=== PATIENT | male | born 1970 | race Caucasian/White ===

== ENCOUNTER 2017-03-06 07:51 | Emergency (ER) | payer OTHER, MEDICAID ==
[2017-03-06] MEDS ORDERED: HYDROmorphONE/DILAUDID 1 MG/ML SYR IVP ONE (08:23)
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
[2017-03-06 10:14] VITALS: BP 131/80; PULSE 66; RESP 14; TEMP 98.1; O2SAT 98
== END 2017-03-06 10:14 | disposition home or self-care (01) ==
LOC: EDUNIT#
DX: S79.912A Unspecified injury of left hip, initial encounter (principal); E11.9 Type 2 diabetes mellitus without complications; F17.200 Nicotine dependence, unspecified, uncomplicated; Z79.4 Long term (current) use of insulin; W10.8XXA Fall (on) (from) other stairs and steps, initial encounter; Y93.89 Activity, other specified
CPT/HCPCS: 72170; 73551; 96374; 99284; J1170

== ENCOUNTER 2017-07-19 12:49 | Emergency (ER) | payer OTHER, MEDICAID ==
[2017-07-19 13:18] VITALS: BP 129/75; PULSE 74; RESP 16; TEMP 97.3; O2SAT 98
--- NOTE | 2017-07-19 15:00 | EDPHY ---
General Narrative: CHIEF COMPLAINT: Right ankle pain, injury HISTORY OF PRESENT ILLNESS: Patient complains of right ankle pain after falling. This was several days ago. He said that he has difficulty ambulating due to footdrop from extensive diabetic neuropathy and previous injuries stemming from a coma in 2001. He says that he was in his home ambulating when his right foot "gave out" on him, moving an eversion injury. He has had moderate to severe pain in the right ankle since then. No change in his baseline range of motion as he has very little to start with. It is very painful to walk on. Too severe to do so. No change in his neuropathy. No injury to the ipsilateral foot, calcaneus, knee or hip. No position of comfort. No other associated complaints or modifying factors. ESTABLISHED ORTHOPEDIST: None currently. Extensive previous orthopedic surgeries REVIEW OF SYSTEMS: Ten systems reviewed and are negative unless otherwise noted in the HPI PAST MEDICAL HISTORY: Extensive. Reviewed with patient. Significant for bilateral foot drop, diabetic neuropathy and orthopedic injuries PAST SURGICAL HISTORY: Extensive orthopedic surgeries. SOCIAL HISTORY: Smoker. Occasional alcohol. Lives at home with 2 days a week of home health FAMILY HISTORY: Noncontributory EXAMINATION General Appearance: Alert, no distress HEENT: Normocephalic atraumatic Cardiovascular: Pulses normal throughout. Symmetric DP pulses 2+. Symmetric PT pulses 2+. Brisk cap refill Neurological: A&O, poor sensory of the lower extremities which is symmetric and reportedly baseline per patient. Foot drop bilaterally, reportedly baseline. For strength symmetrically, reportedly baseline Skin: Warm and dry, no rash. There is moderate ecchymosis to the right foot medially and right ankle medially. No laceration. No puncture wound. No cellulitis or breakdown. Extremities: Significant tenderness of the right ankle, medial greater than lateral. There is no calcaneal tenderness of the right foot. There is mild midfoot tenderness of the right foot. There is no tenderness of the right proximal fibula. Range of motion of the lower extremities is minimal and baseline per patient. Range of motion of the knees and hips symmetric. Psychiatric: Mood and affect normal DIFFERENTIAL DIAGNOSES: Including but not limited to fracture, sprain, strain, hematoma, fracture dislocation, dislocation MDM: Significant right ankle sprain without obvious fracture on x-ray as read by me and radiologist. There is degenerative change with bone demineralization per radiologist. I sat down at great length with this patient regarding his scenario. I 1st asked him about his pain medication prescriptions and he informed me that he has not had any medications prescribed to him there are narcotics since December of this year. After reviewing his prescription drug monitoring program, I confronted him about these 3 narcotic prescription medications he had in the interim. 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 I informed him that I would like to be able to help him with his pain and I recognize that he has pain, but is difficult to provided for somewhat would not be forthcoming about these. I then asked caseworker intake to visit with him to make sure that the patient may be discharged home safely. The patient became upset about this and was frustrated. I informed him that we would provide pain med resources and ensure that he could follow up with his established primary care physician Dr. Clarke. Aggie GALEANO met with the patient. She informed me that he became belligerent about this. Please see her note for more details, but she informs me that he left before she could finish her conversation with him. I attempted to go discussed this with the patient but he had left prior to me being able to do so. ED Precautions: Worsening pain. Erythema, edema, cyanosis, pallor, paresthesia or anesthesia. - History Smoking Status: Heavy smoker - Objective Vital Signs: Initial Vital Signs Temperature (C) 97.3 F 07/19/17 13:15 Heart Rate 74 07/19/17 13:15 Respiratory Rate 16 07/19/17 13:15 Blood Pressure 129/75 H 07/19/17 13:15 O2 Sat (%) 98 07/19/17 13:15 O2 Delivery Mode Room Air Allergies/Adverse Reactions: No Known Allergies Allergy (Verified 11/26/15 11:41) Home Medications: Medication Instructions Recorded Insulin Pump Cartridge [OMNIPOD] 1 each SQ CONT 12/06/15 Herbals/Supplements -Info Only 1 ea PO DAILY 12/10/15 Lipase 6,000/Amylase/Protease 1 - 4 cap PO QID PRN 12/10/15 [Creon 6 (*)] Medications Given: Discontinued Medications Oxycodone/Acetaminophen (Percocet 5/325) 1 tab PO EDNOW ONE Stop: 07/19/17 15:02 Last Admin: 07/19/17 15:03 Dose: 1 tab Departure - Departure Disposition: Home, Routine, Self-Care Condition: Good Instructions: Ankle Sprain (ED) Additional Instructions: 1. ibuprofen 600mg every 8 hours as needed 2. Follow up with PCP 3. Follow up with certified health education specialist 4. ED precautions as discussed Referrals: NONE *PRIMARY CARE P,. [Primary Care Provider] - As per Instructions Estephania Clarke MD [Doctor of Osteopathy] - As per Instructions [facility],. [Clinic] - As per Instructions
[2017-07-19] MEDS ORDERED: OXYCODONE/APAP 5/325 TAB PO ONE (15:01)
== END 2017-07-19 16:14 | disposition home or self-care (01) ==
DX: S93.401A Sprain of unspecified ligament of right ankle, initial encounter (principal); W18.39XA Other fall on same level, initial encounter; F17.200 Nicotine dependence, unspecified, uncomplicated
CPT/HCPCS: 73610; 99283; L4386

== ENCOUNTER 2017-09-17 09:53 | Day surgery (SDC) | payer OTHER, MEDICAID ==
--- NOTE | 2017-09-16 17:50 | PDHPUP ---
History & Physical Update H&P update statement: This history and physical update is based on an assessment of the patient which was completed after admission or registration (within 24 hours), but prior to the surgery/procedure. updated/reviewed
[2017-09-17] MEDS ORDERED: ceFAZolin 2 GM/SWFI 2 GM/20 ML SYR IVP ONE (10:36)
[2017-09-17] MEDS ORDERED: LIDOCAINE 1% 2 ML INJ ID PRN (10:37)
[2017-09-17] MEDS ORDERED: LR 1,000 ML IV ONE (10:37)
[2017-09-17 10:55] VITALS: PULSE 54; TEMP 97.9
[2017-09-17] MEDS ORDERED: BUPIVACAINE 0.5% 30 ML SDV ONE (11:20)
[2017-09-17] MEDS ORDERED: MIDAZOLAM 2 MG/2 ML VIAL IVP ONE (12:14)
--- NOTE | 2017-09-17 12:16 | PDANEPAE ---
ANE History of Present Illness bilateral inguinal hernias ANE Past Medical History - Cardiovascular History Hx Hypertension: No Hx Arrhythmias: No Hx Chest Pain: No Hx Coronary Artery / Peripheral Vascular Disease: No Hx CHF / Valvular Disease: No Hx Palpitations: No Cardiovascular History Comment: rare palpitations - Pulmonary History Hx COPD: No Hx Asthma/Reactive Airway Disease: No Hx Recent Upper Respiratory Infection: Yes Hx Oxygen in Use at Home: No Hx Sleep Apnea: No Sleep Apnea Screening Result - Last Documented: Negative Pulmonary History Comment: CHILDHOOD ASTHMA - Neurologic History Hx Cerebrovascular Accident: No Hx Seizures: No Hx Dementia: No Neurologic History Comment: neuropathy valorie lower legs. L HAND NEUROPATHY - Endocrine History Hx Diabetes: Yes Obesity: no Endocrine History Comment: IDDM type I - DX 37. INSULIN PUMP. HX DIABETIC COMA 2003 - Renal History Hx Renal Disorders: No - Liver History Hx Hepatic Disorders: No Hepatic History Comment: PANCREATIC LESION/TUMOR 12/29/13. PANCREATITIS - Neurological & Psychiatric Hx Hx Neurological and Psychiatric Disorders: Yes Neurological / Psychiatric History Comment: depression - Cancer History Hx Cancer: No - Congenital Disorder History Hx Congenital Disorders: No - GI History GERD: moderate Hx Gastrointestinal Disorders: No Gastrointestinal History Comment: ABDOMINAL PAIN. ABNORMAL STOOLS - Other Health History Other Health History: BILAT INGUINAL HERNIAS. BILAT DROP FOOT- BRACES/ prosthetics(AFO). SCIATIC NERVE DAMAGE. CHRONIC PAIN. Peripheral autonomic neuropathy due to DM - Chronic Pain History Chronic Pain: Yes (BACK, ABDOMEN, LEGS) - Surgical History Prior Surgeries: L HAND GRAFT (compartment syndrome) '04. BACK DISCECTOMY X3. L hip/femur ORIF 2-16 ANE Review of Systems Review of Systems: - Exercise capacity METS (RN): 4 METS ANE Patient History - Allergies Allergies/Adverse Reactions: No Known Allergies Allergy (Verified 09/08/17 13:54) - Home Medications Home medications: home medication list seen and reviewed Home Medications: Lipase 6,000/Amylase/Protease [Creon 6 (*)] 1 - 2 cap PO QIDMEAL 12/10/15 [Last Taken Unknown] Insulin Pump, Patient Own 1 ea MISC AD 09/07/17 [Last Taken Unknown] Methadone HCl [Dolophine Intensol 10 mg/ml (*)] 80 mg PO DAILY 09/07/17 [Last Taken Unknown] Tetrahydrozoline 0.05% [Visine (*)] 1 drop EACHEYE DAILY PRN 09/07/17 [Last Taken Unknown] - NPO status NPO Since - Liquids (Date): 09/17/17 NPO Since - Liquids (Time): 06:00 NPO Since - Solids (Date): 09/16/17 - Smoking Hx Smoking Status: Heavy smoker - Family Anes Hx Family Hx Anesthesia Complications: no ANE Labs/Vital Signs - Vital Signs Blood Pressure: 146/76 Heart Rate: 54 Respiratory Rate: 16 O2 Sat (%): 96 Height: 180.34 cm Weight: 65.771 kg ANE Physical Exam - Airway Neck exam: FROM Mallampati Score: Class 1 Mouth exam: normal dental/mouth exam - Pulmonary Pulmonary: no respiratory distress - Cardiovascular Cardiovascular: regular rate and rhythym - ASA Status ASA Status: III ANE Anesthesia Plan Anesthesia Plan: general endotracheal anesthesia
[2017-09-17] MEDS ORDERED: MIDAZOLAM 2 MG/2 ML VIAL ONE (12:22)
[2017-09-17] MEDS ORDERED: fentaNYL 100 MCG/2 ML INJ ONE ×4 (12:26→13:54)
[2017-09-17] MEDS ORDERED: LIDOCAINE 2% 5 ML SDV ONE (12:26)
[2017-09-17] MEDS ORDERED: SUGAMMADEX SODIUM 200 MG/2 ML VIAL IVP ONE (12:26)
[2017-09-17] MEDS ORDERED: ROCURONIUM 50 MG/5 ML VIAL ONE (12:26)
[2017-09-17] MEDS ORDERED: ONDANSETRON 4 MG/2 ML VIAL ONE (12:26)
[2017-09-17] MEDS ORDERED: PROPOFOL 200 MG/20 ML VIAL ONE (12:26)
[2017-09-17] MEDS ORDERED: DEXAMETHASONE 4 MG/ML VIAL ONE (12:26)
[2017-09-17] MEDS ORDERED: KETOROLAC 30 MG/1 ML SDV ONE (12:46)
[2017-09-17] MEDS ORDERED: NALOXONE HCL 0.4 MG/ML INJ IVP PRN (13:11)
[2017-09-17] MEDS ORDERED: ONDANSETRON 4 MG/2 ML VIAL IVP PRN (13:11)
[2017-09-17] MEDS ORDERED: OXYCODONE/APAP 5/325 TAB PO PRN (13:11)
[2017-09-17] MEDS ORDERED: ALBUTEROL 3 ML DEYVIAL IH PRN (13:11)
[2017-09-17] MEDS ORDERED: PROMETHAZINE HCL 25 MG/ML INJ IVP PRN (13:11)
[2017-09-17] MEDS ORDERED: ACETAMINOPHEN 500 MG TAB PO PRN (13:11)
[2017-09-17] MEDS ORDERED: HYDROCODONE/APAP 5/325 TAB PO PRN (13:11)
--- NOTE | 2017-09-17 13:49 | POSTANESTH ---
Post Anesthetic Evaluation Cardiovascular Status: Normal, Stable Respiratory Status: Normal, Stable Level of Consciousness/Mental Status: Can Participate in Eval Pain Control: Adequate, Prn Tx Ordered Nausea/Vomiting Control: Adequate, Prn Tx Ordered Complications Possibly Related to Anesthesia: None Noted
[2017-09-17] MEDS: fentaNYL 100 MCG/2 ML INJ IVP PRN ×2 (13:56→14:22)
[2017-09-17] MEDS ORDERED: HYDROmorphONE/DILAUDID 1 MG/ML INJ ONE (14:28)
[2017-09-17] MEDS: HYDROmorphONE/DILAUDID 1 MG/ML INJ IVP PRN ×2 (14:32→14:45)
[2017-09-17 14:40] VITALS: BP 157/97; RESP 23; O2SAT 99
[2017-09-17] MEDS ORDERED: HYDROCODONE/APAP 5/325 TAB ONE (14:50)
--- NOTE | 2017-09-17 16:13 | POSTOPPROG ---
Post Op Note Date of Operation: 09/17/17 Surgeon: John Eagle Anesthesiologist: PILY Anesthesia: GET(General Endotracheal) Pre-op Diagnosis: BILATERAL INGUINAL HERNIAS Post-op Diagnosis: SAME Indication: PAIN Procedure: LAP BIH WITH MESH Findings: BILATERAL DIRECT DEFECTS Inf/Abcess present in the surg proc area at time of surgery?: No Depth: Organ Space EBL: Minimal Complications: NONE Specimen(s): NONE
--- NOTE | 2017-09-17 21:12 | GOP ---
[f rep st] OPERATIVE REPORT DATE OF OPERATION: 09/17/2017 SURGEON: John Eagle MD PREOPERATIVE DIAGNOSIS: Bilateral inguinal hernias. POSTOPERATIVE DIAGNOSIS: Bilateral inguinal hernias. PROCEDURE PERFORMED: Laparoscopic bilateral hernia repairs with mesh. FINDINGS: Patient was found to have bilateral direct defects. DESCRIPTION OF PROCEDURE: Patient taken to the operating room where he received a satisfactory gener al endotracheal anesthesia by Dr. Hammond. He was placed in supine position, prepped and draped in the usual sterile fashion. A transverse incision was made underneath the umbilicus. The dissection was carried down to the rectus sheath which was incised. A subfascial tunnel was then dissected free with a balloon dissector. That was replaced with CO2 insufflation trocar. Two other trocars were p laced in midline under direct vision. Norris's ligament was exposed bilaterally. The cords were mob ilized bilaterally. Peritoneum was dissected off the cord structures. There were no significant ind irect sacs and only a minor lipoma. Structures were dissected free and reduced. Major defects were bilateral direct defects. These were then repaired by covering them with Covidien polyester mesh pat ches which were anchored in place with AbsorbaTacks, securing it to Norris's ligament, to the lacunar ligament, to the anterior abdominal wall and lateral abdominal wall outside the internal ring. Hemo stasis was assured. The wound was irrigated. Trocars were removed under direct vision. Trocar site s were closed with 0 Vicryl for the fascia, 4-0 Monocryl subcuticular stitch for the skin. All layer s infiltrated with 0.5% Marcaine. Blood loss was negligible. Taken to the recovery room in good con dition. There was no social worker assistant. /[id number]/MODL
== END 2017-09-17 16:01 | disposition home or self-care (01) ==
LOC: FSGY 09:53 → F3N 09:53 → UNDOADMOB 09:53 → EDSTATUS 12:00 → FSGY 16:01
PROVIDERS: ATTEND Surgery
PROC: 0YUA4JZ Supplement Bilateral Inguinal Region with Synthetic Substitute, Percutaneous Endoscopic Approach (ICD-10-PCS; principal; 2017-09-17 12:00)
DX: K40.20 Bilateral inguinal hernia, without obstruction or gangrene, not specified as recurrent (principal); E78.5 Hyperlipidemia, unspecified; E10.9 Type 1 diabetes mellitus without complications; G62.9 Polyneuropathy, unspecified; Z87.891 Personal history of nicotine dependence
CPT/HCPCS: C1727; C1781; J0690; J1100; J1170; J1885; J2250; J2405; J2704; J3010

== ENCOUNTER → 2017-12-03 | Outpatient (CLI) | payer OTHER, MEDICAID ==
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
== END ==
PROVIDERS: ATTEND Family Medicine
DX: Z46.89 Encounter for fitting and adjustment of other specified devices (principal); G62.81 Critical illness polyneuropathy; M21.371 Foot drop, right foot; M21.372 Foot drop, left foot; E11.9 Type 2 diabetes mellitus without complications; C25.9 Malignant neoplasm of pancreas, unspecified
CPT/HCPCS: 97162; G8978; G8979; G8980

== ENCOUNTER 2018-06-09 19:00 | Emergency (ER) | payer OTHER, MEDICAID ==
--- NOTE | 2018-06-09 19:33 | EDPHY ---
H & P Time Seen by Provider: 06/09/18 19:16 HPI/ROS: CHIEF COMPLAINT: Abdominal pain HISTORY OF PRESENT ILLNESS: Patient is a 48-year-old male with recurrent abdominal pain and history of pancreatitis who presents emergency department with epigastric pain. His pain started at approximately 4:00 p.m. after eating a"greasy quiche."Patient states his pain is moderate to severe. It is not worse with movement. He has had nausea but no vomiting. No fevers or chills. No dysuria frequency. This is similar to previous episodes of abdominal pain. REVIEW OF SYSTEMS: My complete review of systems is negative except as mentioned in the HPI. Past Medical/Surgical History: Includes recurrent abdominal pain, pancreatitis, diabetes, neuropathy, foot drop , chronic pain, depression Past surgical history: L4-L5 surgery, hip surgery Smoking Status: Heavy smoker Physical Exam: 36.6, 164/95, 66, 16, 98% on room air GENERAL: Mild acute acute distress, alert. HEENT: Eyes normal to inspection, normal pharynx, no signs of dehydration. NECK: No thyromegaly, no lymphadenopathy, supple. RESPIRATORY: Clear to auscultation bilaterally, no rales, rhonchi or wheezing. CVS: Regular rate and rhythm, no rubs, murmurs, or gallops. ABDOMEN: Soft, epigastric tenderness to palpation with no rebound or guarding, nondistended, no organomegaly. BACK: Normal to inspection, no CVA tenderness. SKIN: Normal color, no rash, warm, dry. No pallor. EXTREMITIES: No pedal edema, no calf tenderness, no Homans sign or cords, no joint swelling. NEURO/PSYCH: Alert and oriented, normal mood and affect, normal motor sensory exam. Constitutional: Initial Vital Signs Temperature (C) 36.6 C 06/09/18 19:08 Heart Rate 66 06/09/18 19:08 Respiratory Rate 16 06/09/18 19:08 Blood Pressure 164/95 H 06/09/18 19:08 O2 Sat (%) 98 06/09/18 19:08 O2 Delivery Mode Room Air Allergies/Adverse Reactions: No Known Allergies Allergy (Verified 09/08/17 13:54) Home Medications: Medication Instructions Recorded Insulin Pump, Patient Own 1 ea MISC AD 09/07/17 Methadone HCl [Dolophine Intensol 80 mg PO DAILY 09/07/17 10 mg/ml (*)] Tetrahydrozoline 0.05% [Visine (*)] 1 drop EACHEYE DAILY PRN 09/07/17 Medical Decision Making ED Course/Re-evaluation: In the emergency department discussed possible etiologies with the patient. I answered all his questions. I reviewed the patient's previous medical record. An IV was placed. Laboratory studies were obtained. Patient was given normal saline 1 L IV for hydration. He is given Zofran 4 mg IV for nausea. He was given Toradol 30 mg IV for pain. Patient is mildly anemic. White count is normal. Patient's chemistry panel is unremarkable. Normal lipase, bilirubin AST and AL T. Mildly elevated alk-phos. I rechecked the patient. He is feeling better. His abdominal exam is soft, nontender nondistended. He requested more saline prior to discharge. Patient was given warnings prior to leaving. He will return with worsening symptoms. Differential Diagnosis: My differential includes but is not limited to pancreatitis, chronic abdominal pain, GERD, peptic ulcer disease, perforation, hiatal hernia, cholecystitis, cholangitis, small-bowel obstruction - Data Points Laboratory Results: Laboratory Results 06/09/18 19:22 06/09/18 19:22 06/09/18 06/09/18 19:22 19:22 WBC 8.19 10^3/uL 10^3/uL (3.80-9.50) RBC 4.46 10^6/uL 10^6/uL (4.40-6.38) Hgb 13.1 g/dL L g/dL (13.7-17.5) Hct 39.1 % L % (40.0-51.0) MCV 87.7 fL fL (81.5-99.8) MCH 29.4 pg pg (27.9-34.1) MCHC 33.5 g/dL g/dL (32.4-36.7) RDW 14.2 % % (11.5-15.2) Plt Count 209 10^3/uL 10^3/uL (150-400) MPV 9.5 fL fL (8.7-11.7) Neut % (Auto) 61.8 % % (39.3-74.2) Lymph % (Auto) 30.5 % % (15.0-45.0) [place]ison % (Auto) 7.1 % % (4.5-13.0) Eos % (Auto) 0.0 % L % (0.6-7.6) Baso % (Auto) 0.4 % % (0.3-1.7) Nucleat RBC Rel Count 0.0 % % (0.0-0.2) Absolute Neuts (auto) 5.06 10^3/uL 10^3/uL (1.70-6.50) Absolute Lymphs (auto) 2.50 10^3/uL 10^3/uL (1.00-3.00) Absolute Monos (auto) 0.58 10^3/uL 10^3/uL (0.30-0.80) Absolute Eos (auto) 0.00 10^3/uL L 10^3/uL (0.03-0.40) Absolute Basos (auto) 0.03 10^3/uL 10^3/uL (0.02-0.10) Absolute Nucleated RBC 0.00 10^3/uL 10^3/uL (0-0.01) Immature Gran % 0.2 % % (0.0-1.1) Immature Gran # 0.02 10^3/uL 10^3/uL (0.00-0.10) Sodium 136 mEq/L mEq/L (135-145) Potassium 4.5 mEq/L mEq/L (3.3-5.0) Chloride 100 mEq/L mEq/L (97-110) Carbon Dioxide 24 mEq/l mEq/l (22-31) Anion Gap 12 mEq/L mEq/L (8-16) BUN 11 mg/dL mg/dL (7-23) Creatinine 0.8 mg/dL mg/dL (0.7-1.3) Estimated GFR > 60 Glucose 105 mg/dL H mg/dL (70-100) Calcium 9.6 mg/dL mg/dL (8.5-10.4) Total Bilirubin 0.3 mg/dL mg/dL (0.1-1.4) Conjugated Bilirubin 0.2 mg/dL mg/dL (0.0-0.5) Unconjugated Bilirubin 0.1 mg/dL mg/dL (0.0-1.1) AST 36 IU/L IU/L (17-59) ALT 63 IU/L IU/L (21-72) Alkaline Phosphatase 238 IU/L H IU/L (38-126) Total Protein 7.5 g/dL g/dL (6.3-8.2) Albumin 4.2 g/dL g/dL (3.5-5.0) Lipase 26 IU/L IU/L (23-300) Medications Given: Discontinued Medications Sodium Chloride (Ns) 1,000 mls @ 0 mls/hr IV EDNOW ONE; Wide Open PRN Reason: Protocol Stop: 06/09/18 19:35 Last Admin: 06/09/18 19:44 Dose: 1,000 mls Ketorolac Tromethamine (Toradol) 30 mg IVP EDNOW ONE Stop: 06/09/18 19:35 Last Admin: 06/09/18 19:44 Dose: 30 mg Ondansetron HCl (Zofran) 4 mg IVP EDNOW ONE Stop: 06/09/18 19:35 Last Admin: 06/09/18 19:44 Dose: 4 mg Departure - Departure Disposition: Home, Routine, Self-Care Clinical Impression: Abdominal pain Qualifiers: Abdominal location: epigastric Qualified Code(s): R10.13 - Epigastric pain Condition: Good Instructions: Abdominal Pain (ED) Additional Instructions: Return with increasing abdominal pain, nausea, vomiting, fever, chills or any other concerns. Referrals: [facility],. [Clinic] - 2-3 days, call for appt.
[2018-06-09] MEDS ORDERED: NS 1,000 ML IV ONE (19:34)
[2018-06-09] MEDS ORDERED: KETOROLAC 30 MG/1 ML SDV IVP ONE (19:34)
[2018-06-09] MEDS ORDERED: ONDANSETRON 4 MG/2 ML VIAL IVP ONE (19:34)
[2018-06-09 19:42] LABS: PLATELET COUNT 209 10^3/uL (150-400)
[2018-06-09] MEDS ORDERED: NS 500 ML IV ONE (20:28)
[2018-06-09 21:01] VITALS: BP 150/80
== END 2018-06-09 21:01 | disposition home or self-care (01) ==
DX: R10.13 Epigastric pain (principal); F17.210 Nicotine dependence, cigarettes, uncomplicated; E11.40 Type 2 diabetes mellitus with diabetic neuropathy, unspecified; F32.9 Major depressive disorder, single episode, unspecified
CPT/HCPCS: 96361; 96374; 96375; 99284; J1885; J2405

== ENCOUNTER 2018-06-26 20:06 | Emergency (ER) | payer OTHER, MEDICAID ==
[2018-06-26] MEDS ORDERED: NS 1,000 ML IV ONE (20:24)
[2018-06-26] MEDS ORDERED: KETOROLAC 15 MG/1 ML SDV IVP ONE (20:31)
[2018-06-26 20:55] LABS: PLATELET COUNT 160 10^3/uL (150-400)
[2018-06-26] MEDS ORDERED: METOCLOPRAMIDE 10 MG/2 ML VIAL ONE (21:01)
[2018-06-26] MEDS ORDERED: IOPAMIDOL (ISOVUE-300) 100 ML BTL ONE (21:16)
[2018-06-26] MEDS ORDERED: METOCLOPRAMIDE 10 MG/2 ML VIAL IVP ONE (21:19)
--- NOTE | 2018-06-26 21:43 | EDPHY ---
H & P Time Seen by Provider: 06/26/18 20:17 HPI/ROS: CHIEF COMPLAINT: Abdominal pain HISTORY OF PRESENT ILLNESS: Patient is a 48-year-old male with a history of type 1 diabetes and gastroparesis here with 1-2 hours of sharp periumbilical abdominal pain. Denies any vomiting, diarrhea, fever. He does have a history of pancreatitis and states this does feel somewhat similar. He has been taking Reglan orally for gastroparesis. He denies any changes in stool clubbing no blood or dark tarry stools. He has tried no medication to alleviate his pain. REVIEW OF SYSTEMS: Constitutional: No fever, no chills. Eyes: No discharge. ENT: No sore throat. Cardiovascular: No chest pain, no palpitations. Respiratory: No cough, no shortness of breath. Gastrointestinal: + abdominal pain, no vomiting. Genitourinary: No hematuria. Musculoskeletal: No back pain. Skin: No rashes. Neurological: No headache. Smoking Status: Former smoker Physical Exam: General Appearance: Alert and no distress. Eyes: Pupils equal and round no injection. Respiratory: Chest is nontender, lungs are clear to auscultation. Cardiac: regular rate and rhythm. Gastrointestinal: Abdomen is soft and diffusely tender, no masses, bowel sounds normal. Musculoskeletal: Neck is supple and nontender. Extremities have full range of motion and are nontender. Skin: No rashes or lesions. Constitutional: Initial Vital Signs Temperature (C) 36.8 C 06/26/18 20:09 Heart Rate 61 06/26/18 20:09 Respiratory Rate 20 06/26/18 20:09 Blood Pressure 141/70 H 06/26/18 20:09 O2 Sat (%) 95 06/26/18 20:09 O2 Delivery Mode Room Air Allergies/Adverse Reactions: No Known Allergies Allergy (Verified 06/26/18 20:09) Home Medications: Medication Instructions Recorded Insulin Pump, Patient Own 1 ea MISC AD 09/07/17 Methadone HCl [Dolophine Intensol 80 mg PO DAILY 09/07/17 10 mg/ml (*)] Tetrahydrozoline 0.05% [Visine (*)] 1 drop EACHEYE DAILY PRN 09/07/17 Medical Decision Making ED Course/Re-evaluation: 48-year-old male here with abdominal pain for 1 or 2 hr. Labs reveal no leukocytosis, elevation of total bilirubin or transaminitis. Does have slight bump in his alk phosphatase but has no right upper quadrant pain or changes in his LFTs or total bilirubin to suggest biliary colic or choledocholithiasis. Additionally his lipase is normal. He was offered CT scan and had a panic attack during CT scan and then subsequently refused to perform the CT. Did explain to him that full evaluation of his abdominal pain was limited due to lack of imaging. He agrees to follow up if he is worsening in any way. - Data Points Laboratory Results: Laboratory Results 06/26/18 20:40 06/26/18 20:40 06/26/18 06/26/18 20:40 20:40 WBC 6.85 10^3/uL 10^3/uL (3.80-9.50) RBC 4.37 10^6/uL L 10^6/uL (4.40-6.38) Hgb 12.9 g/dL L g/dL (13.7-17.5) Hct 38.6 % L % (40.0-51.0) MCV 88.3 fL fL (81.5-99.8) MCH 29.5 pg pg (27.9-34.1) MCHC 33.4 g/dL g/dL (32.4-36.7) RDW 14.0 % % (11.5-15.2) Plt Count 160 10^3/uL 10^3/uL (150-400) MPV 9.5 fL fL (8.7-11.7) Neut % (Auto) 60.8 % % (39.3-74.2) Lymph % (Auto) 30.7 % % (15.0-45.0) [place] % (Auto) 7.7 % % (4.5-13.0) Eos % (Auto) 0.1 % L % (0.6-7.6) Baso % (Auto) 0.3 % % (0.3-1.7) Nucleat RBC Rel Count 0.0 % % (0.0-0.2) Absolute Neuts (auto) 4.16 10^3/uL 10^3/uL (1.70-6.50) Absolute Lymphs (auto) 2.10 10^3/uL 10^3/uL (1.00-3.00) Absolute Monos (auto) 0.53 10^3/uL 10^3/uL (0.30-0.80) Absolute Eos (auto) 0.01 10^3/uL L 10^3/uL (0.03-0.40) Absolute Basos (auto) 0.02 10^3/uL 10^3/uL (0.02-0.10) Absolute Nucleated RBC 0.00 10^3/uL 10^3/uL (0-0.01) Immature Gran % 0.4 % % (0.0-1.1) Immature Gran # 0.03 10^3/uL 10^3/uL (0.00-0.10) Sodium 137 mEq/L mEq/L (135-145) Potassium 4.3 mEq/L mEq/L (3.3-5.0) Chloride 103 mEq/L mEq/L (97-110) Carbon Dioxide 27 mEq/l mEq/l (22-31) Anion Gap 7 mEq/L L mEq/L (8-16) BUN 15 mg/dL mg/dL (7-23) Creatinine 0.8 mg/dL mg/dL (0.7-1.3) Estimated GFR > 60 Glucose 104 mg/dL H mg/dL (70-100) Calcium 9.3 mg/dL mg/dL (8.5-10.4) Total Bilirubin 0.3 mg/dL mg/dL (0.1-1.4) AST 83 IU/L H IU/L (17-59) ALT 65 IU/L IU/L (21-72) Alkaline Phosphatase 163 IU/L H IU/L (38-126) Total Protein 6.8 g/dL g/dL (6.3-8.2) Albumin 3.7 g/dL g/dL (3.5-5.0) Lipase 18 IU/L L IU/L (23-300) Medications Given: Discontinued Medications Sodium Chloride (Ns) 1,000 mls @ 0 mls/hr IV EDNOW ONE; Wide Open PRN Reason: Protocol Stop: 06/26/18 20:25 Last Admin: 06/26/18 20:52 Dose: 1,000 mls Ketorolac Tromethamine (Toradol) 15 mg IVP EDNOW ONE Stop: 09/09/18 20:32 Last Admin: 06/26/18 20:53 Dose: 15 mg Metoclopramide HCl (Reglan Injection) 10 mg IVP EDNOW ONE Stop: 06/26/18 21:20 Last Admin: 06/26/18 21:19 Dose: 10 mg Departure - Departure Disposition: Home, Routine, Self-Care Clinical Impression: Abdominal pain Condition: Good Instructions: Acute Abdominal Pain (ED) Additional Instructions: Source of you're abdominal pain is unclear today. As you know we are unable to perform CT scan today due to feeling anxious during examination. We feel worse in any way are air pain is not improving please return to the ER for further evaluation including CT scan. Referrals: NONE *PRIMARY CARE P,. [Primary Care Provider] - As per Instructions
[2018-06-26 21:56] VITALS: BP 144/57
[2018-06-27] MEDS ORDERED: *PHM DO NOT USE-METOCLOPRAMIDE 0.1 MG/ML IV NEWBORN SYR IV ONE (20:31)
== END 2018-06-26 21:55 | disposition home or self-care (01) ==
DX: R10.0 Acute abdomen (principal); K31.84 Gastroparesis; E10.69 Type 1 diabetes mellitus with other specified complication; E86.9 Volume depletion, unspecified; Z79.899 Other long term (current) drug therapy
CPT/HCPCS: 96361; 96374; 96375; 99284; J1885; J2765; Q9967

== ENCOUNTER 2018-07-16 18:55 | Emergency (ER) | payer OTHER, MEDICAID ==
[2018-07-16] MEDS ORDERED: METOCLOPRAMIDE 10 MG/2 ML VIAL IVP ONE (19:13)
[2018-07-16] MEDS ORDERED: KETOROLAC 15 MG/1 ML SDV IVP ONE ×2 (19:13→20:22)
[2018-07-16] MEDS ORDERED: NS 1,000 ML IV ONE ×2 (19:13→20:23)
--- NOTE | 2018-07-16 19:15 | EDPHY ---
H & P Time Seen by Provider: 07/16/18 19:10 HPI/ROS: CHIEF COMPLAINT: Abdominal pain HISTORY OF PRESENT ILLNESS: Patient is 48-year-old male well known to this emergency room with history of pancreatitis and gastroparesis secondary to type 1 diabetes. He reports that he was feeling well at work and then had an episode where he felt that his blood sugar was low so he ate a piece of candy then soon thereafter developed epigastric pain. States this feels similar to prior episodes of pancreatitis. The pain does radiate to the back. He has no history of abdominal aneurysm. She takes no blood thinners. He has been using his insulin as prescribed. Denies any vomiting or diarrhea but does report not see a. I personally saw this patient 1 month ago for similar symptoms and patient states that this feels like the same symptoms. At that time he declined CT scan due to panic attack. REVIEW OF SYSTEMS: Constitutional: No fever, no chills. Eyes: No discharge. ENT: No sore throat. Cardiovascular: No chest pain, no palpitations. Respiratory: No cough, no shortness of breath. Gastrointestinal: + abdominal pain, + vomiting. Genitourinary: No hematuria. Musculoskeletal: No back pain. Skin: No rashes. Neurological: No headache. Smoking Status: Former smoker Physical Exam: General Appearance: Alert and no distress. Eyes: Pupils equal and round no injection. Respiratory: Chest is nontender, lungs are clear to auscultation. Cardiac: regular rate and rhythm. Gastrointestinal: Abdomen is soft and tender to the epigastrium, no masses, no peritoneal signs, bowel sounds normal. Musculoskeletal: Neck is supple and nontender. Extremities have full range of motion and are nontender. Skin: No rashes or lesions. Constitutional: Initial Vital Signs Temperature (C) 37.0 C 07/16/18 18:55 Heart Rate 69 07/16/18 18:55 Respiratory Rate 22 H 07/16/18 18:55 Blood Pressure 164/94 H 07/16/18 18:55 O2 Sat (%) 95 07/16/18 18:55 O2 Delivery Mode Room Air Allergies/Adverse Reactions: No Known Allergies Allergy (Verified 07/16/18 18:59) Home Medications: Medication Instructions Recorded Insulin Pump, Patient Own 1 ea MISC AD 09/07/17 Methadone HCl [Dolophine Intensol 80 mg PO DAILY 09/07/17 10 mg/ml (*)] Tetrahydrozoline 0.05% [Visine (*)] 1 drop EACHEYE DAILY PRN 09/07/17 Medical Decision Making ED Course/Re-evaluation: 48-year-old male here with history of pancreatitis and gastroparesis. On exam he has epigastric tenderness but no right upper quadrant right lower quadrant tenderness most suggestive of pain from his gastroparesis. He was given IV Toradol were all, Reglan and IV fluid and felt significantly improved. Once again his labs are relatively unremarkable but did show slight increase in his liver enzymes and alk-phos. I suggested CT scan but again patient declined would like to follow up with his primary care doctor. I do have low suspicion for choledocholithiasis or cholecystitis but did discuss this possibility with the patient. He agrees to follow up if he has worsening pain or other new symptoms. Differential Diagnosis: Cholecystitis, choledocholithiasis, perforated gastric ulcer, ACS, bowel obstruction - Data Points Laboratory Results: Laboratory Results 07/16/18 19:19 07/16/18 19:19 07/16/18 07/16/18 19:19 19:19 WBC 7.15 10^3/uL 10^3/uL (3.80-9.50) RBC 4.54 10^6/uL 10^6/uL (4.40-6.38) Hgb 13.5 g/dL L g/dL (13.7-17.5) Hct 39.8 % L % (40.0-51.0) MCV 87.7 fL fL (81.5-99.8) MCH 29.7 pg pg (27.9-34.1) MCHC 33.9 g/dL g/dL (32.4-36.7) RDW 13.7 % % (11.5-15.2) Plt Count 171 10^3/uL 10^3/uL (150-400) MPV 9.3 fL fL (8.7-11.7) Neut % (Auto) 56.9 % % (39.3-74.2) Lymph % (Auto) 33.6 % % (15.0-45.0) [place] % (Auto) 9.0 % % (4.5-13.0) Eos % (Auto) 0.0 % L % (0.6-7.6) Baso % (Auto) 0.4 % % (0.3-1.7) Nucleat RBC Rel Count 0.0 % % (0.0-0.2) Absolute Neuts (auto) 4.07 10^3/uL 10^3/uL (1.70-6.50) Absolute Lymphs (auto) 2.40 10^3/uL 10^3/uL (1.00-3.00) Absolute Monos (auto) 0.64 10^3/uL 10^3/uL (0.30-0.80) Absolute Eos (auto) 0.00 10^3/uL L 10^3/uL (0.03-0.40) Absolute Basos (auto) 0.03 10^3/uL 10^3/uL (0.02-0.10) Absolute Nucleated RBC 0.00 10^3/uL 10^3/uL (0-0.01) Immature Gran % 0.1 % % (0.0-1.1) Immature Gran # 0.01 10^3/uL 10^3/uL (0.00-0.10) Sodium 136 mEq/L mEq/L (135-145) Potassium 4.5 mEq/L mEq/L (3.3-5.0) Chloride 99 mEq/L mEq/L (97-110) Carbon Dioxide 26 mEq/l mEq/l (22-31) Anion Gap 11 mEq/L mEq/L (8-16) BUN 13 mg/dL mg/dL (7-23) Creatinine 0.8 mg/dL mg/dL (0.7-1.3) Estimated GFR > 60 Glucose 183 mg/dL H mg/dL (70-100) Calcium 9.4 mg/dL mg/dL (8.5-10.4) Total Bilirubin 0.4 mg/dL mg/dL (0.1-1.4) AST 112 IU/L H IU/L (17-59) ALT 105 IU/L H IU/L (21-72) Alkaline Phosphatase 296 IU/L H IU/L (38-126) Total Protein 7.5 g/dL g/dL (6.3-8.2) Albumin 4.3 g/dL g/dL (3.5-5.0) Lipase 39 IU/L IU/L (23-300) Medications Given: Discontinued Medications Al Hydroxide/Mg Hydroxide (Maalox Susp) 30 ml PO EDNOW ONE Stop: 07/16/18 19:57 Last Admin: 07/16/18 20:01 Dose: 30 ml Sodium Chloride (Ns) 1,000 mls @ 0 mls/hr IV EDNOW ONE; Wide Open PRN Reason: Protocol Stop: 07/16/18 19:14 Last Admin: 07/16/18 19:24 Dose: 1,000 mls Sodium Chloride (Ns) 1,000 mls @ 0 mls/hr IV EDNOW ONE; Wide Open PRN Reason: Protocol Stop: 07/16/18 20:24 Last Admin: 07/16/18 20:32 Dose: 1,000 mls Ketorolac Tromethamine (Toradol) 15 mg IVP EDNOW ONE Stop: 07/16/18 19:14 Last Admin: 07/16/18 19:23 Dose: 15 mg Ketorolac Tromethamine (Toradol) 15 mg IVP EDNOW ONE Stop: 07/16/18 20:23 Last Admin: 07/16/18 20:33 Dose: 15 mg Lidocaine (Lidocaine 2% Viscous) 5 ml PO EDNOW ONE Stop: 07/16/18 19:57 Last Admin: 07/16/18 20:01 Dose: 5 ml Metoclopramide HCl (Reglan Injection) 10 mg IVP EDNOW ONE Stop: 07/16/18 19:14 Last Admin: 07/16/18 19:24 Dose: 10 mg Departure - Departure Disposition: Home, Routine, Self-Care Clinical Impression: Epigastric pain Condition: Good Instructions: Acute Abdominal Pain (ED) Additional Instructions: Sore severe pain is unclear today though is likely due to her gastroparesis. As discussed you're alk phos is elevated today. Suggest she follow up with her primary care doctor Wednesday or Wednesday to discuss further evaluation. Return to the ER for worsening pain, fever or other worrisome symptoms. Referrals: NONE *PRIMARY CARE P,. [Primary Care Provider] - As per Instructions [facility],. [Clinic] - As per Instructions
[2018-07-16 19:24] LABS: PLATELET COUNT 171 10^3/uL (150-400)
[2018-07-16] MEDS ORDERED: MAG HYDROX/AL HYDROX/SIMETH 30 ML UDCUP PO ONE (19:56)
[2018-07-16] MEDS ORDERED: LIDOCAINE 2% VISCOUS 15 ML UDCUP PO ONE (19:56)
[2018-07-16 20:37] VITALS: BP 165/82
== END 2018-07-16 20:59 | disposition home or self-care (01) ==
DX: R10.13 Epigastric pain (principal); K31.84 Gastroparesis; E86.9 Volume depletion, unspecified; E10.9 Type 1 diabetes mellitus without complications; Z79.4 Long term (current) use of insulin; Z87.891 Personal history of nicotine dependence
CPT/HCPCS: 96361; 96374; 96375; 96376; 99284; J1885; J2765

== ENCOUNTER 2018-08-14 21:17 | Emergency (ER) | payer OTHER, MEDICAID ==
[2018-08-14] MEDS ORDERED: NS 1,000 ML IV ONE ×2 (22:02)
[2018-08-14] MEDS ORDERED: KETOROLAC 30 MG/1 ML SDV IVP ONE (22:02)
[2018-08-14] MEDS ORDERED: METOCLOPRAMIDE 10 MG/2 ML VIAL IVP ONE (22:02)
[2018-08-14] MEDS ORDERED: FAMOTIDINE 20 MG/NACL 50 ML IV ONE (22:02)
--- NOTE | 2018-08-14 22:09 | EDPHY ---
H & P Stated Complaint: PANCRETITIS PAIN SINCE 4 P.M. VOMITING Time Seen by Provider: 08/14/18 21:58 HPI/ROS: HPI The patient presents with mid abdominal pain which has been present since about 4:00 p.m. Today which came on slowly and has been constant which she describes as a stabbing sensation to the center of his abdomen without any radiation. He developed vomiting upon arrival to the emergency department. He has not had any fever, dark or bloody stools. He attributes his pain to diabetic gastro paresis or pancreatitis. He has suffered from both of these in the past. He does take Reglan daily for this, however he said he ate a larger breakfast than usual and is wondering if this is what has triggered his symptoms. His last visit to the emergency room was at the end of June of this year and he improved after receiving Reglan and Toradol. He is requesting these medications currently.. REVIEW OF SYSTEMS 10 systems were reviewed and negative with the exception of the elements mentioned in the history of present illness. PMHx: Type 1 diabetes with insulin pump, diabetic gastroparesis, pancreatitis, daily methadone Soc Hx: Housed, history of smoking PHYSICAL General Appearance: Alert, no distress Eyes: Pupils equal and round no pallor or injection ENT, Mouth: Mucous membranes moist Respiratory: There are no retractions, lungs are clear to auscultation Cardiovascular: Regular rate and rhythm Gastrointestinal: Abdomen is soft and diffusely tender to palpation without any rebound or guarding Neurological: A&O, moves all extremities Skin: Warm and dry, no rashes Musculoskeletal: Neck is supple non tender Extremities: symmetrical, full range of motion Psychiatric: Patient is oriented X 3, there is no agitation Source: Patient, Old records Exam Limitations: No limitations - Personal History Current Tetanus/Diphtheria Vaccine: Yes Current Tetanus Diphtheria and Acellular Pertussis (TDAP): Yes Tetanus Vaccine Date: 2 years ago - Medical/Surgical History Hx Asthma: No Hx Chronic Respiratory Disease: No Hx Diabetes: Yes Hx Cardiac Disease: No Hx Renal Disease: No Hx Cirrhosis: No Hx Alcoholism: No Hx HIV/AIDS: No Hx Splenectomy or Spleen Trauma: No Other PMH: chronic pancreatitis,diabetes, 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 3 lower back L4- L5 surgeries, bilateral foot drop braces, CHRONIC PAIN, depression, l hip/femur fracture w/ titanium gissell - Social History Smoking Status: Former smoker Constitutional: Initial Vital Signs Temperature (C) 37.0 C 08/14/18 21:23 Heart Rate 69 08/14/18 21:23 Respiratory Rate 18 08/14/18 21:23 O2 Sat (%) 98 08/14/18 21:23 O2 Delivery Mode Room Air Allergies/Adverse Reactions: No Known Allergies Allergy (Verified 08/14/18 21:25) Home Medications: Medication Instructions Recorded Insulin Pump, Patient Own 1 ea MISC AD 09/07/17 Methadone HCl [Dolophine Intensol 80 mg PO DAILY 09/07/17 10 mg/ml (*)] Tetrahydrozoline 0.05% [Visine (*)] 1 drop EACHEYE DAILY PRN 09/07/17 Medical Decision Making Differential Diagnosis: 48-year-old male with type 1 diabetes with insulin pump, history of recurrent abdominal pain thought to be related to gastroparesis or pancreatitis, presents with several hours of progressive constant abdominal pain associated with nausea and vomiting. In the emergency department, basic labs were checked and were unremarkable. ALT was slightly elevated but doubt that this indicates any underlying serious pathology. The patient improved with IV fluids and medications. I suspect his symptoms could be related to diabetic gastro paresis, I feel pancreatitis is less likely with a normal lipase. He could also have some sort of functional abdominal pain. He will be discharged from the emergency department. - Data Points Laboratory Results: Laboratory Results 08/14/18 21:53 08/14/18 21:53 08/14/18 08/14/18 21:53 21:53 WBC 10.08 10^3/uL H 10^3/uL (3.80-9.50) RBC 4.83 10^6/uL 10^6/uL (4.40-6.38) Hgb 14.1 g/dL g/dL (13.7-17.5) Hct 41.0 % % (40.0-51.0) MCV 84.9 fL fL (81.5-99.8) MCH 29.2 pg pg (27.9-34.1) MCHC 34.4 g/dL g/dL (32.4-36.7) RDW 13.3 % % (11.5-15.2) Plt Count 169 10^3/uL 10^3/uL (150-400) MPV 9.4 fL fL (8.7-11.7) Neut % (Auto) 77.4 % H % (39.3-74.2) Lymph % (Auto) 15.8 % % (15.0-45.0) [place] % (Auto) 6.2 % % (4.5-13.0) Eos % (Auto) 0.0 % L % (0.6-7.6) Baso % (Auto) 0.3 % % (0.3-1.7) Nucleat RBC Rel Count 0.0 % % (0.0-0.2) Absolute Neuts (auto) 7.81 10^3/uL H 10^3/uL (1.70-6.50) Absolute Lymphs (auto) 1.59 10^3/uL 10^3/uL (1.00-3.00) Absolute Monos (auto) 0.62 10^3/uL 10^3/uL (0.30-0.80) Absolute Eos (auto) 0.00 10^3/uL L 10^3/uL (0.03-0.40) Absolute Basos (auto) 0.03 10^3/uL 10^3/uL (0.02-0.10) Absolute Nucleated RBC 0.00 10^3/uL 10^3/uL (0-0.01) Immature Gran % 0.3 % % (0.0-1.1) Immature Gran # 0.03 10^3/uL 10^3/uL (0.00-0.10) Sodium 136 mEq/L mEq/L (135-145) Potassium 3.9 mEq/L mEq/L (3.3-5.0) Chloride 101 mEq/L mEq/L (97-110) Carbon Dioxide 26 mEq/l mEq/l (22-31) Anion Gap 9 mEq/L mEq/L (6-14) BUN 12 mg/dL mg/dL (7-23) Creatinine 0.7 mg/dL mg/dL (0.7-1.3) Estimated GFR > 60 Glucose 165 mg/dL H mg/dL (70-100) Calcium 9.7 mg/dL mg/dL (8.5-10.4) Total Bilirubin 0.4 mg/dL mg/dL (0.1-1.4) Conjugated Bilirubin 0.2 mg/dL mg/dL (0.0-0.5) Unconjugated Bilirubin 0.2 mg/dL mg/dL (0.0-1.1) AST 41 IU/L IU/L (17-59) ALT 73 IU/L H IU/L (21-72) Alkaline Phosphatase 251 IU/L H IU/L (38-126) Total Protein 7.7 g/dL g/dL (6.3-8.2) Albumin 4.2 g/dL g/dL (3.5-5.0) Lipase 26 IU/L IU/L (23-300) Medications Given: Discontinued Medications Sodium Chloride (Ns) 1,000 mls @ 0 mls/hr IV EDNOW ONE; Wide Open PRN Reason: Protocol Stop: 08/14/18 22:03 Last Admin: 08/14/18 22:12 Dose: 1,000 mls Sodium Chloride (Ns) 1,000 mls @ 0 mls/hr IV EDNOW ONE; Wide Open PRN Reason: Protocol Stop: 08/14/18 22:03 Last Admin: 08/14/18 22:12 Dose: 1,000 mls Famotidine/Sodium Chloride (Pepcid 20 Mg (Premix)) 50 mls @ 200 mls/hr IV EDNOW ONE Stop: 08/14/18 22:16 Last Admin: 08/14/18 22:13 Dose: 50 mls Ketorolac Tromethamine (Toradol) 15 mg IVP EDNOW ONE Stop: 08/14/18 22:03 Last Admin: 08/14/18 22:12 Dose: 15 mg Metoclopramide HCl (Reglan Injection) 10 mg IVP EDNOW ONE Stop: 08/14/18 22:03 Last Admin: 08/14/18 22:12 Dose: 10 mg Departure - Departure Disposition: Home, Routine, Self-Care Clinical Impression: Abdominal pain Qualifiers: Abdominal location: epigastric Qualified Code(s): R10.13 - Epigastric pain Vomiting Qualifiers: Vomiting type: unspecified Vomiting Intractability: non-intractable Nausea presence: with nausea Qualified Code(s): R11.2 - Nausea with vomiting, unspecified Condition: Good Instructions: Diabetic Gastroparesis (DC), Acute Nausea and Vomiting (ED) Additional Instructions: Please follow-up with your primary care doctor in the next 1-2 days. Return to the emergency department if worse in any way. Referrals: NONE *PRIMARY CARE P,. [Primary Care Provider] - As per Instructions
[2018-08-14 22:12] LABS: PLATELET COUNT 169 10^3/uL (150-400)
[2018-08-14 22:51] VITALS: BP 139/77
== END 2018-08-14 23:16 | disposition home or self-care (01) ==
DX: R10.13 Epigastric pain (principal); R11.2 Nausea with vomiting, unspecified; E86.9 Volume depletion, unspecified; K86.1 Other chronic pancreatitis; E10.9 Type 1 diabetes mellitus without complications; Z87.891 Personal history of nicotine dependence
CPT/HCPCS: 96361; 96365; 96375; 99284; J1885; J2765

== ENCOUNTER 2018-10-17 04:11 | Emergency (ER) | payer OTHER, MEDICAID ==
--- NOTE | 2018-10-17 04:19 | EDPHY ---
H & P Time Seen by Provider: 10/17/18 04:19 HPI/ROS: HPI CHIEF COMPLAINT: "My pancreatitis is flaring up." HISTORY OF PRESENT ILLNESS: 48-year-old male presents emergency room epigastric abdominal pain. The patient reports that his pancreatitis is flaring up. This feels exactly like his previous episodes of pancreatitis. He has had nausea but no vomiting. Denies diarrhea. Pain is located mid abdomen epigastric. Does not radiate anywhere. Patient denies any chest pain or shortness of breath. States typically gets Reglan and fluids for this and improved. States this started much earlier yesterday morning after he ate a bowl of cereal. Past Medical History: Medical history significant insulin-dependent diabetes, pancreatitis, chronic pain, insulin pump Past Surgical History: No recent surgery Social History: Denies daily use of drugs alcohol tobacco. Family History: Noncontributory ROS REVIEW OF SYSTEMS: 10 Systems were reviewed and negative with the exception of the elements mentioned in the history of present illness. Exam Constitutional triage nursing summary reviewed, vital signs reviewed, awake/ alert. Vital signs stable Eyes normal conjunctivae and sclera, EOMI, PERRLA. HENT normal inspection, atraumatic, moist mucus membranes, no epistaxis, neck supple/ no meningismus, no raccoon eyes. Respiratory clear to auscultation bilaterally, normal breath sounds, no respiratory distress, no wheezing. Cardiovascular rate normal, regular rhythm, no murmur, no edema, distal pulses normal. Gastrointestinal mild tender palpation epigastric, no rebound, no guarding, normal bowel sounds, no distension, no pulsatile mass. Genitourinary no CVA tenderness. Musculoskeletal no midline vertebral tenderness, full range of motion, no calf swelling, no tenderness of extremities, no meningismus, good pulses, neurovascularly intact. Skin pink, warm, & dry, no rash, skin atraumatic. Neurologic awake, alert and oriented x 3, AAOx3, moves all 4 extremities equally, motor intact, sensory intact, CN II-XII intact, normal cerebellar, normal vision, normal speech. Psychiatric normal mood/affect. Heme/Lymph/Immune no lymphadenopathy. Differential Diagnosis: Differential diagnosis includes but is not limited to and in no particular order: Bowel obstruction, appendicitis, gallbladder disease, diverticulitis, colitis, enteritis, perforated viscus, gastritis, GERD , esophagitis, urinary tract infection, pyelonephritis, kidney stones Medical Decision Making: Plan for this patient IV establishment IV fluid bolus , IV Reglan and Benadryl, check basic blood work, and re-evaluate. Re-evaluation: 0632AM: Patient re-evaluated abdomen is soft nontender. He is not vomiting. Patient states he feels much better after IV fluids Reglan and Benadryl and Toradol. His blood work has been reviewed and his lipase is normal. CBC and chemistry normal. He feels much better is asking to drink. Denies any current abdominal pain. We did not perform a CT scan as he feels this is like his chronic pancreatitis. Doing much better. He would like to go home. 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 3 lower back L4- L5 surgeries, bilateral foot drop braces, CHRONIC PAIN, depression, l hip/femur fracture w/ titanium gissell - Social History Smoking Status: Current every day smoker Constitutional: Initial Vital Signs Temperature (C) 36.6 C 10/17/18 04:20 Heart Rate 76 10/17/18 04:20 Respiratory Rate 20 10/17/18 04:20 Blood Pressure 146/82 H 10/17/18 04:20 O2 Sat (%) 96 10/17/18 04:20 O2 Delivery Mode Room Air Allergies/Adverse Reactions: No Known Allergies Allergy (Verified 10/17/18 04:23) Home Medications: Medication Instructions Recorded Insulin Pump, Patient Own 1 ea MISC AD 09/07/17 Methadone HCl [Dolophine Intensol 80 mg PO DAILY 09/07/17 10 mg/ml (*)] Tetrahydrozoline 0.05% [Visine (*)] 1 drop EACHEYE DAILY PRN 09/07/17 Medical Decision Making - Data Points Laboratory Results: Laboratory Results 10/17/18 04:30 10/17/18 04:30 10/17/18 10/17/18 10/17/18 05:13 04:30 04:30 WBC 11.02 10^3/uL H 10^3/uL (3.80-9.50) RBC 4.78 10^6/uL 10^6/uL (4.40-6.38) Hgb 14.0 g/dL g/dL (13.7-17.5) Hct 41.4 % % (40.0-51.0) MCV 86.6 fL fL (81.5-99.8) MCH 29.3 pg pg (27.9-34.1) MCHC 33.8 g/dL g/dL (32.4-36.7) RDW 13.3 % % (11.5-15.2) Plt Count 199 10^3/uL 10^3/uL (150-400) MPV 9.9 fL fL (8.7-11.7) Neut % (Auto) 74.9 % H % (39.3-74.2) Lymph % (Auto) 18.1 % % (15.0-45.0) [place] % (Auto) 6.2 % % (4.5-13.0) Eos % (Auto) 0.0 % L % (0.6-7.6) Baso % (Auto) 0.3 % % (0.3-1.7) Nucleat RBC Rel Count 0.0 % % (0.0-0.2) Absolute Neuts (auto) 8.26 10^3/uL H 10^3/uL (1.70-6.50) Absolute Lymphs (auto) 1.99 10^3/uL 10^3/uL (1.00-3.00) Absolute Monos (auto) 0.68 10^3/uL 10^3/uL (0.30-0.80) Absolute Eos (auto) 0.00 10^3/uL L 10^3/uL (0.03-0.40) Absolute Basos (auto) 0.03 10^3/uL 10^3/uL (0.02-0.10) Absolute Nucleated RBC 0.00 10^3/uL 10^3/uL (0-0.01) Immature Gran % 0.5 % % (0.0-1.1) Immature Gran # 0.06 10^3/uL 10^3/uL (0.00-0.10) PT 14.5 SEC SEC (12.0-15.0) INR 1.11 (0.83-1.16) APTT 32.0 SEC SEC (23.0-38.0) VBG Lactic Acid Sodium 132 mEq/L L mEq/L (135-145) Potassium 3.9 mEq/L mEq/L (3.5-5.2) Chloride 102 mEq/L mEq/L (97-110) Carbon Dioxide 23 mEq/l mEq/l (22-31) Anion Gap 7 mEq/L mEq/L (6-14) BUN 9 mg/dL mg/dL (7-23) Creatinine 0.8 mg/dL mg/dL (0.7-1.3) Estimated GFR > 60 Glucose 208 mg/dL H mg/dL (70-100) Calcium 9.6 mg/dL mg/dL (8.5-10.4) Total Bilirubin 0.6 mg/dL mg/dL (0.1-1.4) Conjugated Bilirubin 0.3 mg/dL mg/dL (0.0-0.5) Unconjugated Bilirubin 0.3 mg/dL mg/dL (0.0-1.1) AST 42 IU/L IU/L (17-59) ALT 69 IU/L IU/L (21-72) Alkaline Phosphatase 410 IU/L H IU/L (38-126) Total Protein 7.4 g/dL g/dL (6.3-8.2) Albumin 4.0 g/dL g/dL (3.5-5.0) Lipase 28 IU/L IU/L (23-300) 10/17/18 04:30 WBC RBC Hgb Hct MCV MCH MCHC RDW Plt Count MPV Neut % (Auto) Lymph % (Auto) [place] % (Auto) Eos % (Auto) Baso % (Auto) Nucleat RBC Rel Count Absolute Neuts (auto) Absolute Lymphs (auto) Absolute Monos (auto) Absolute Eos (auto) Absolute Basos (auto) Absolute Nucleated RBC Immature Gran % Immature Gran # PT INR APTT VBG Lactic Acid 1.8 mmol/L mmol/L (0.7-2.1) Sodium Potassium Chloride Carbon Dioxide Anion Gap BUN Creatinine Estimated GFR Glucose Calcium Total Bilirubin Conjugated Bilirubin Unconjugated Bilirubin AST ALT Alkaline Phosphatase Total Protein Albumin Lipase Medications Given: Discontinued Medications Diphenhydramine HCl (Benadryl Injection) 50 mg IVP EDNOW ONE Stop: 10/17/18 04:25 Last Admin: 10/17/18 04:34 Dose: 50 mg Sodium Chloride (Ns) 1,000 mls @ 0 mls/hr IV EDNOW ONE; Wide Open PRN Reason: Protocol Stop: 10/17/18 04:22 Last Admin: 10/17/18 04:34 Dose: 1,000 mls Ketorolac Tromethamine (Toradol) 15 mg IVP EDNOW ONE Stop: 10/17/18 05:34 Last Admin: 10/17/18 05:37 Dose: 15 mg Metoclopramide HCl (Reglan Injection) 10 mg IVP EDNOW ONE Stop: 10/17/18 04:26 Last Admin: 10/17/18 04:34 Dose: 10 mg Departure - Departure Disposition: Home, Routine, Self-Care Clinical Impression: Abdominal pain Qualifiers: Abdominal location: epigastric Qualified Code(s): R10.13 - Epigastric pain Instructions: Acute Abdominal Pain (ED) Additional Instructions: 1. [place] diet over the next 24-48 hours 2. No spicy fatty greasy foods 3. Return to the emergency room if you have worsening abdominal pain, fever, vomiting. Referrals: NONE *PRIMARY CARE P,. [Primary Care Provider] - As per Instructions [facility],. [Clinic] - As per Instructions
[2018-10-17] MEDS ORDERED: NS 1,000 ML IV ONE (04:21)
[2018-10-17] MEDS ORDERED: METOCLOPRAMIDE 10 MG/2 ML VIAL IVP ONE (04:25)
[2018-10-17 04:48] LABS: PLATELET COUNT 199 10^3/uL (150-400)
[2018-10-17 05:28] LABS: INR 1.11 (0.83-1.16); PROTIME(PATIENT) 14.5 SEC (12.0-15.0)
[2018-10-17] MEDS ORDERED: KETOROLAC 15 MG/1 ML SDV IVP ONE (05:33)
[2018-10-17 06:29] VITALS: BP 144/83
== END 2018-10-17 06:49 | disposition home or self-care (01) ==
DX: R10.13 Epigastric pain (principal); E86.9 Volume depletion, unspecified; E11.40 Type 2 diabetes mellitus with diabetic neuropathy, unspecified; F17.200 Nicotine dependence, unspecified, uncomplicated; G89.29 Other chronic pain; F32.9 Major depressive disorder, single episode, unspecified; Z87.81 Personal history of (healed) traumatic fracture; Z87.19 Personal history of other diseases of the digestive system; Z96.41 Presence of insulin pump (external) (internal)
CPT/HCPCS: 96361; 96374; 96375; 99285; J1200; J1885; J2765